=== PATIENT | male | born 1995 | race African-American/Black ===

== ENCOUNTER 2021-01-31 21:48 | Emergency (ER) | payer SELFPAY ==
[~2021-01-31] VITALS: Ht 182.9 cm; Wt 94.8 kg
--- NOTE | 2021-01-31 22:46 | NUR ---
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
[2021-01-31] MEDS ORDERED: LIDOCAINE-MPF 1%, 5ML ONE ×2 (23:30→23:34)
[2021-02-01] MEDS ORDERED: LIDOCAINE 2%,20 ML JEL.PF.APP MM ONE
[2021-02-01] MEDS ORDERED: LIDOCAINE-MPF 1%, 5ML INFIL ONE
--- NOTE | 2021-02-01 00:56 | NUR ---
PROVIDER AT BEDSIDE PERFORMING SUTURES. PATIENT TOLERATED WELL.
[2021-02-01] MEDS ORDERED: NEOSPORIN OINT. PKT 1 PACKET ONE (01:17)
[2021-02-01 01:42] VITALS: BP 140/76
== END 2021-02-01 01:44 | disposition home or self-care (01) ==
LOC: ED 02-01 01:41
DX: S51.851A Open bite of right forearm, initial encounter (principal); S31.35XA Open bite of scrotum and testes, initial encounter; S31.31XA Laceration without foreign body of scrotum and testes, initial encounter; S51.811A Laceration without foreign body of right forearm, initial encounter; F17.210 Nicotine dependence, cigarettes, uncomplicated; R00.0 Tachycardia, unspecified; Z72.9 Problem related to lifestyle, unspecified; W54.0XXA Bitten by dog, initial encounter; Y93.89 Activity, other specified; Y92.410 Unspecified street and highway as the place of occurrence of the external cause; Y99.8 Other external cause status
CPT/HCPCS: 12002; 12032; 99283; 99285